=== PATIENT | female | born 1955 | race Caucasian/White ===

== ENCOUNTER → 2017-12-31 | Outpatient (CLI) | payer BC ==
[~2017-12-31] MED LIST: CYCL10 PO; HYDR1TAB94 PO; HYDSUL200 PO; LEVSOD88 PO; METHOTREXATE SQ
[2017-12-31 15:28] LABS: Free Thyroxine 1.39 ng/dL (0.70-1.60); Thyroid Stimulating Hormone 3.47 uIU/mL (0.360-4.800)
== END | disposition home or self-care (01) ==
LOC: LAB 09:50 → LAB SHORT 09:50
PROVIDERS: Hospitalist
DX: E03.9 Hypothyroidism, unspecified (principal)
CPT/HCPCS: 84439; 84443

== ENCOUNTER → 2021-10-25 | Outpatient (CLI) | payer MEDICARE, BC | END | disposition home or self-care (01) | LOC: LAB SHORT 15:30 → LAB 15:30 | DX: R10.30 Lower abdominal pain, unspecified (principal) | CPT/HCPCS: 87086 ==

== ENCOUNTER 2023-03-13 13:09 | Emergency (ER) | payer MEDICARE, BC ==
[~2023-03-13] VITALS: Ht 152.4 cm; Wt 102.5 kg
[2023-03-13 13:16] VITALS: BP 152/79
[2023-03-13] MEDS ORDERED: HYDR1TAB94 PO (14:16)
== END 2023-03-13 14:41 | disposition home or self-care (01) ==
LOC: ER 13:09
DX: S42.211A Unspecified displaced fracture of surgical neck of right humerus, initial encounter for closed fracture (principal); W18.30XA Fall on same level, unspecified, initial encounter; Z88.5 Allergy status to narcotic agent; Z79.899 Other long term (current) drug therapy; M19.90 Unspecified osteoarthritis, unspecified site; M06.9 Rheumatoid arthritis, unspecified
CPT/HCPCS: 99283

== ENCOUNTER → 2023-11-06 | Outpatient (CLI) | payer MEDICARE, BC ==
[2023-11-06 14:29] LABS: BASOPHILS ABSOLUTE AUTO 0.03 K/mm3 (0.00-0.23); BASOPHILS PERCENT AUTO 1 % (0-2); EOSINOPHILS ABSOLUTE AUTO 0.11 K/mm3 (0.00-0.68); EOSINOPHILS PERCENT AUTO 2 % (0-6); Hematocrit 38.5 % (33.0-51.0); Hemoglobin 12.6 g/dL (11.5-16.0); IMMATURE GRAN ABSOLUTE AUTO 0.01 K/mm3 (0.00-0.10); IMMATURE GRAN PERCENT AUTO 0 % (0-1); LYMPHOCYTES ABSOLUTE AUTO 1.82 K/mm3 (0.84-5.20); LYMPHOCYTES PERCENT AUTO 36 % (21-46); MONOCYTES ABSOLUTE AUTO 0.33 K/mm3 (0.16-1.47); MONOCYTES PERCENT AUTO 6 % (4-13); Mean Corpuscular HGB 31.7 pg (26.0-34.0); Mean Corpuscular HGB Conc 32.7 g/dL (31.5-36.5); Mean Corpuscular Volume 97 fL (80-100); Mean Platelet Volume 10.4 fL (9.1-12.4); NEUTROPHILS ABSOLUTE AUTO 2.83 K/mm3 (1.96-9.15); NEUTROPHILS PERCENT AUTO 55 % (41-73); Platelet Count 301 K/mm3 (150-400); RDW Standard Deviation 50.2 fL (35.1-46.3); Red Blood Cell Count 3.97 M/mm3 (3.80-5.20); White Blood Cell Count 5.13 K/mm3 (4.00-11.30)
[2023-11-06 15:18] LABS: Alanine Aminotransfer (ALT/SGP 25 U/L (12-78); Albumin, Blood 3.4 g/dL (3.4-5.0); Albumin/Globulin Ratio 1.1 (0.8-1.8); Alk Phos 71 U/L (50-136); Anion Gap 7 mmol/L (3-11); Aspartate Aminotrans (AST/SGOT 15 U/L (12-37); Bilirubin, Total 0.5 mg/dL (0.1-1.0); Blood Urea Nitrogen 21 mg/dL (8-24); CHOL/HDL RATIO 2.2; CO2, Blood 28 mmol/L (21-32); Calcium, Blood 8.7 mg/dL (8.5-10.1); Chloride, Blood 109 mmol/L (98-108); Cholesterol 134 mg/dL (50-200); Creatinine, Blood 0.88 mg/dL (0.40-1.00); Free Thyroxine 1.55 ng/dL (0.70-1.60); Globulin, Blood 3.2 g/dL (2.2-4.0); Glomerular Filtration Rate 71 (60-); Glucose, Blood 96 mg/dL (70-99); HDL Cholesterol 61 mg/dL (>39); Low Density Lipoprotein Chol 62 mg/dL (0-110); Potassium, Blood 4.1 mmol/L (3.5-5.5); Sodium, Blood 140 mmol/L (136-145); Total Protein, Blood 6.6 g/dL (6.4-8.2); Triglycerides 53 mg/dL (30-160); Very Low Density Lipoprot Chol 10 mg/dL (6-32)
== END | disposition home or self-care (01) ==
LOC: LAB SHORT 13:39 → LAB 13:39
PROVIDERS: Hospitalist
DX: E78.00 Pure hypercholesterolemia, unspecified (principal); E03.9 Hypothyroidism, unspecified; I10 Essential (primary) hypertension
CPT/HCPCS: 80053; 80061; 84439; 84443; 85025

== ENCOUNTER 2025-03-04 03:15 | Day surgery (SDC) | payer MEDICARE, BC ==
[~2025-03-04 03:15] MED LIST changes: -Acerola C500 MG PO; -Calcium Carbon500 MG PO; -Crestor40 MG PO; -FISH OIL 1,2001 EAC4 PO; -FLAXSEED OIL1000 M1 PO; -FOLI1 PO; -Magnesium500 M1 PO; -Nexium40 MG PO; -PRED5 PO; -Prinivil10 MG PO; -THERA-D2000 UNIT PO; -Vitamin B Comple1 EA PO; -XELJANZ XR11 MG PO
[2025-03-04 11:14] VITALS: BP 135/60
[2025-03-04] MEDS ORDERED: Crestor40 MG PO (12:28)
[2025-03-04] MEDS ORDERED: FOLI1 PO (12:28)
[2025-03-04] MEDS ORDERED: Prinivil10 MG PO (12:28)
[2025-03-04] MEDS ORDERED: Nexium40 MG PO (12:28)
[2025-03-04] MEDS ORDERED: XELJANZ XR11 MG PO (12:29)
[2025-03-04] MEDS ORDERED: Acerola C500 MG PO (12:29)
[2025-03-04] MEDS ORDERED: Vitamin B Comple1 EA PO (12:29)
[2025-03-04] MEDS ORDERED: THERA-D2000 UNIT PO (12:31)
[2025-03-04] MEDS ORDERED: Calcium Carbon500 MG PO (12:32)
[2025-03-04] MEDS ORDERED: FLAXSEED OIL1000 M1 PO (12:33)
[2025-03-04] MEDS ORDERED: FISH OIL 1,2001 EAC4 PO (12:33)
[2025-03-04] MEDS ORDERED: Magnesium500 M1 PO (12:34)
[2025-03-04] MEDS ORDERED: PRED5 PO (12:35)
--- NOTE | 2025-03-04 12:36 | NUR ---
PT REPORTS SHE HAS HAD RECLAST IN THE PAST.
== END 2025-03-04 12:02 | disposition home or self-care (01) ==
LOC: ATC 03:15
DX: M85.80 Other specified disorders of bone density and structure, unspecified site (principal); M05.79 Rheumatoid arthritis with rheumatoid factor of multiple sites without organ or systems involvement; D84.821 Immunodeficiency due to drugs; T45.1X5A Adverse effect of antineoplastic and immunosuppressive drugs, initial encounter; G89.29 Other chronic pain; M54.9 Dorsalgia, unspecified; E03.9 Hypothyroidism, unspecified; K21.9 Gastro-esophageal reflux disease without esophagitis; E78.00 Pure hypercholesterolemia, unspecified; I10 Essential (primary) hypertension; Z87.891 Personal history of nicotine dependence; Z79.60 Long term (current) use of unspecified immunomodulators and immunosuppressants; Z79.631 Long term (current) use of antimetabolite agent; Z79.890 Hormone replacement therapy; Z79.899 Other long term (current) drug therapy
CPT/HCPCS: 80048; 80061; 84439; 84443; 96365; J3489

== ENCOUNTER → 2025-03-04 | Outpatient (CLI) | payer MEDICARE, BC ==
[~2025-03-04] MED LIST changes: +Acerola C500 MG PO; +Calcium Carbon500 MG PO; +Crestor40 MG PO; +FISH OIL 1,2001 EAC4 PO; +FLAXSEED OIL1000 M1 PO; +FOLI1 PO; +Magnesium500 M1 PO; +Nexium40 MG PO; +PRED5 PO; +Prinivil10 MG PO; +THERA-D2000 UNIT PO; +Vitamin B Comple1 EA PO; +XELJANZ XR11 MG PO
[2025-03-04 15:50] LABS: Anion Gap 8 mmol/L (3-11); Blood Urea Nitrogen 15 mg/dL (8-24); CHOL/HDL RATIO 2.9; CO2, Blood 25 mmol/L (21-32); Calcium, Blood 9.3 mg/dL (8.5-10.1); Chloride, Blood 111 mmol/L (98-108); Cholesterol 154 mg/dL (50-200); Creatinine, Blood 0.82 mg/dL (0.40-1.00); Glucose, Blood 90 mg/dL (70-99); HDL Cholesterol 53 mg/dL (>39); LDL/HDL RATIO 1.5; Low Density Lipoprotein Chol 82 mg/dL (0-110); Potassium, Blood 4.4 mmol/L (3.5-5.5); Sodium, Blood 140 mmol/L (136-145); Thyroid Stimulating Hormone 6.580 uIU/mL (0.360-4.800); Triglycerides 95 mg/dL (30-160); Very Low Density Lipoprot Chol 19 mg/dL (6-32)
== END ==
LOC: LAB SHORT 09:30 → LAB 09:30
PROVIDERS: Hospitalist
DX: E03.9 Hypothyroidism, unspecified (principal); E78.00 Pure hypercholesterolemia, unspecified; I10 Essential (primary) hypertension
CPT/HCPCS: 80048; 80061; 84439; 84443

== ENCOUNTER → 2025-04-13 | Outpatient (CLI) | payer MEDICARE, BC ==
[~2025-04-13] MED LIST changes: +Acerola C500 MG PO; +Calcium Carbon500 MG PO; +Crestor40 MG PO; +FISH OIL 1,2001 EAC4 PO; +FLAXSEED OIL1000 M1 PO; +FOLI1 PO; +Magnesium500 M1 PO; +Nexium40 MG PO; +PRED5 PO; +Prinivil10 MG PO; +THERA-D2000 UNIT PO; +Vitamin B Comple1 EA PO; +XELJANZ XR11 MG PO
[2025-04-13 16:37] LABS: Thyroid Stimulating Hormone 2.59 uIU/mL (0.360-4.800)
== END | disposition home or self-care (01) ==
LOC: LAB SHORT 11:40 → LAB 11:40
PROVIDERS: Hospitalist
DX: E03.9 Hypothyroidism, unspecified (principal)
CPT/HCPCS: 84439; 84443